=== PATIENT | male | born 1965 | race Hispanic/Latino ===

== ENCOUNTER → 2022-11-04 | Day surgery (SDC) | payer BC ==
[~2022-11-04] MED LIST: EPINEPHRINE HCL 1:1000 1ML 1 MG/ML AMP ONE; LACTATED RINGER'S 1,000 ML BAG IV ONE; LIDOCAINE HCL 2% LOCAL INJ 5 ML SDV VIAL INJ ONE; POVIDONE IODINE 0.05% 0.05 % ML PO ONE; PROPOFOL IV EMULSION 10 MG/ML 20 ML VIAL ONE; VITAMIN C1000 MG PO
[2022-11-04 15:03] VITALS: TEMP 97.8
[2022-11-04 15:18] VITALS: BP 107/83; PULSE 65; RESP 16; O2SAT 98
== END | disposition home or self-care (01) ==
LOC: EDBD 12:30 → OR 12:37
PROVIDERS: ATTEND Internal Medicine Gastroenterology
DX: Z12.11 Encounter for screening for malignant neoplasm of colon (principal); D12.3 Benign neoplasm of transverse colon; D12.4 Benign neoplasm of descending colon; K62.5 Hemorrhage of anus and rectum; K57.30 Diverticulosis of large intestine without perforation or abscess without bleeding; K64.8 Other hemorrhoids; R03.0 Elevated blood-pressure reading, without diagnosis of hypertension; R00.1 Bradycardia, unspecified; I45.10 Unspecified right bundle-branch block
CPT/HCPCS: 45381; 45384; 45385; 93005; J0171; J2001; J2704; J7121; 45378

== ENCOUNTER → 2023-12-08 | Day surgery (SDC) | payer BC ==
[~2023-12-08] MED LIST changes: +ALBUTEROL 90 MCG/ACT INHALER INH ONE; -EPINEPHRINE HCL 1:1000 1ML 1 MG/ML AMP ONE; +KETAMINE 50MG/5ML SYR ONE; -LACTATED RINGER'S 1,000 ML BAG IV ONE; -POVIDONE IODINE 0.05% 0.05 % ML PO ONE; -PROPOFOL IV EMULSION 10 MG/ML 20 ML VIAL ONE; +PROPOFOL IV EMULSION 10 MG/ML 50 ML VIAL IV ONE; +PROPOFOL IV ONE
[2023-12-08] MEDS: LACTATED RINGER'S 1,000 ML ONE (07:03)
[2023-12-08 08:45] VITALS: BP 131/89; PULSE 52; RESP 18; TEMP 97.2; O2SAT 98
== END | disposition home or self-care (01) ==
LOC: OR 06:01
PROVIDERS: ATTEND Internal Medicine Gastroenterology
DX: Z12.11 Encounter for screening for malignant neoplasm of colon (principal); Z86.010 Personal history of colon polyps; K57.30 Diverticulosis of large intestine without perforation or abscess without bleeding; K62.5 Hemorrhage of anus and rectum; K64.1 Second degree hemorrhoids; R03.0 Elevated blood-pressure reading, without diagnosis of hypertension; R00.1 Bradycardia, unspecified; Z01.810 Encounter for preprocedural cardiovascular examination; Z68.34 Body mass index [BMI] 34.0-34.9, adult
CPT/HCPCS: 45378; 93005; J2001; J2704; J7121